=== PATIENT | female | born 1960 | race Caucasian/White ===

== ENCOUNTER 2021-09-13 13:51 | Outpatient (CLI) | payer BC, SELFPAY ==
--- NOTE | ~2021-09-13 | CT_ITS ---
EXAMINATION: CT lung screening DATE: 09/13/2021 14:21 INDICATION: 30+ pack year history of cigarette smoking TECHNIQUE: Computed tomography (CT) of the chest was performed without intravenous contrast. Addition al 3D reconstructions utilizing coronal maximum intensity projection (MIP) were performed. Automated exposure control and iterative reconstruction technique were employed. The dose-length product was 85 .96 mGy-cm. COMPARISON: None FINDINGS: Mild linear discoid atelectasis at the lingula and at the posterior sulci of the bilateral lower lobe s. No evident pulmonary nodules, pneumonia, pulmonary edema or pleural effusion. Heart size is normal . Small amount of atherosclerotic coronary artery calcific location. No pericardial effusion. Thoraci c aorta is normal in caliber. No pathologically enlarged thoracic lymphadenopathy. Visualized upper a bdomen is unremarkable. Mild thoracic spondylosis. Severe disc height loss with degenerative endplate changes at C6-C7. IMPRESSION: 1. Lung-RADS category 1: Negative. Continue annual screening with noncontrast low-dose chest CT in 12 months. Reviewed, dictated and finalized at location [facility]. [employer] IMPRESSION: 1. Lung-RADS category 1: Negative. Continue annual screening with noncontrast l ow-dose chest CT in 12 months.
== END 2021-09-13 13:52 | disposition home or self-care (01) ==
PROVIDERS: PCP Family Medicine; Visit Provider Nurse Practitioner Family
DX: Z87.891 Personal history of nicotine dependence (principal)
CPT/HCPCS: 71271

== ENCOUNTER 2022-05-18 00:18 | Day surgery (SDC) | payer OTHER, SELFPAY ==
--- NOTE | 2022-05-09 13:30 | PC.NURSE ---
Pt. phoned at [phone] in regards to upcoming colonoscopy. Message left on answering machine to return call at [phone].
[2022-05-10 14:29] VITALS: BMI 24.5
--- NOTE | 2022-05-17 10:53 | PM.HPGS ---
History of Present Illness History of Present Illness Consent: Risks, benefits, and alternatives have been discussed and questions answered. Patient agrees to proceed with procedure. Chief complaint: neoplasm screening Narrative: Trina Beltre is a 61 year old female was referred for colon cancer screening. Five years ago she had a colonoscopy in removal of a 2 cm polyp that was a tubular adenoma with high-grade dysplasia. Review of Systems Review of Systems: All systems reviewed & are unremarkable except as noted in HPI and below PMFSH Past Medical History Medical History Anxiety Depression Dyslipidemia Insomnia Mild episode of recurrent depressive disorder Neck pain, chronic OAB (overactive bladder) Spinal arthritis Vitamin D deficiency Surgical History Surgical History History of tonsillectomy and adenoidectomy Hx of appendectomy 09/2010 Hx of section 1991 - vaginal delivery in 1994 [place] teeth extracted Family History Family History Father Family history of throat cancer Mother Acute myocardial infarction Other Diabetes mellitus Hypertension Social History Social History Smoking packs per day: 1 Smoking cigarettes per day: 20.0 Years smoked: 20 Smoking pack-years: 20.00 Smoking status: Former smoker Tobacco type: cigarettes Second hand tobacco smoke exposure: Yes Additional smoking assessment comments: CURRENTLY ON NICOTINE PATCH Alcohol intake: current Alcohol use details: consumes 2 beers once a month, rarelt Substance use: never Substance use type: does not use Living arrangements: with family Additional occupation/education comments: From Home Gender identity (if verbalized by the patient): Female Spiritual care concerns: No Agree to blood products: Yes Meds Home Medications and Allergies Home Medications Medication Instructions Recorded Confirmed Type albuterol sulfate 90 mcg/actuation 2 inhalation inhalation Q4-6H PRN 10/30/19 05/10/22 Rx breath activated powder inhaler shortness of breath or wheezing #1 (ProAir RespiClick) ea hydrocodone 7.5 mg-acetaminophen 1 tablet PO TID PRN Pain 10/30/19 05/10/22 History 325 mg tablet cholecalciferol (vitamin D3) 50 50 mcg PO DAILY 07/30/21 05/10/22 History mcg (2,000 unit) capsule lisinopril 40 mg tablet 40 mg PO DAILY #30 tabs 11/02/21 05/10/22 Rx tolterodine 4 mg capsule,extended 4 mg PO DAILY #90 caps 02/17/22 05/10/22 Rx release 24 hr atorvastatin 20 mg tablet 20 mg PO DAILY #90 tabs 03/02/22 05/10/22 Rx citalopram 20 mg tablet 20 mg PO DAILY #90 tabs 04/04/22 05/10/22 Rx nicotine See Rx Instructions transdermal 04/04/22 05/10/22 Rx 21mg/24hr-14mg/24hr-7mg/24hr daily .COMPLEX #56 patches transderm patches,sequentl trazodone 50 mg tablet 50 mg PO HS 05/10/22 05/10/22 History Allergies Allergy/AdvReac Type Severity Reaction Status Date / Time No Known Allergies Allergy Verified 05/18/22 06:58 Exam Const: General: alert Orientation/consciousness: patient oriented x3 Resp: Auscultation: clear to auscultation bilaterally Cardio: Rhythm: regular rhythm GI: GI Palp: Yes Soft to palpation and No Tenderness to palpation present (GI) Neuro: General: patient oriented x3 Assessment and Plan Assessment and plan (1) Colon cancer screening: Code(s): Z12.11 - Encounter for screening for malignant neoplasm of colon Status: Acute Assessment and Plan: Colonoscopy with possible biopsy or polypectomy or cautery or injection of substances.
--- NOTE | 2022-05-17 13:36 | WPDANESEPPF ---
Anes - Initial Pre Proc Eval Procedure: Operation Date: 05/18/22 08:00 Proposed Procedures p Screening Colonoscopy - Micheal Markham MD Date/Time: 05/17/22 13:36 Surgeon: Micheal Markham MD Pre Op Diagnosis: neoplasm screening Patient Data Age: 61 Gender: F Height: 1.57 m Weight: 61 kg Allergies Allergy/AdvReac Type Severity Reaction Status Date / Time No Known Allergies Allergy Verified 05/18/22 06:58 Home Medications Medication Instructions Recorded Confirmed Type albuterol sulfate 90 mcg/actuation 2 inhalation inhalation Q4-6H PRN 10/30/19 05/10/22 Rx breath activated powder inhaler shortness of breath or wheezing #1 (ProAir RespiClick) ea hydrocodone 7.5 mg-acetaminophen 1 tablet PO TID PRN Pain 10/30/19 05/10/22 History 325 mg tablet cholecalciferol (vitamin D3) 50 50 mcg PO DAILY 07/30/21 05/10/22 History mcg (2,000 unit) capsule lisinopril 40 mg tablet 40 mg PO DAILY #30 tabs 11/02/21 05/10/22 Rx tolterodine 4 mg capsule,extended 4 mg PO DAILY #90 caps 02/17/22 05/10/22 Rx release 24 hr atorvastatin 20 mg tablet 20 mg PO DAILY #90 tabs 03/02/22 05/10/22 Rx citalopram 20 mg tablet 20 mg PO DAILY #90 tabs 04/04/22 05/10/22 Rx nicotine See Rx Instructions transdermal 04/04/22 05/10/22 Rx 21mg/24hr-14mg/24hr-7mg/24hr daily .COMPLEX #56 patches transderm patches,sequentl trazodone 50 mg tablet 50 mg PO HS 05/10/22 05/10/22 History Patient hx anesthesia problems: none Family hx anesthesia problems: none Results Review: All pre-operative results and documents have been reviewed as part of the pre-operative evaluation. [facility] Past Medical History Medical History Anxiety Depression Dyslipidemia Insomnia Mild episode of recurrent depressive disorder Neck pain, chronic OAB (overactive bladder) Spinal arthritis Vitamin D deficiency Surgical History Surgical History History of tonsillectomy and adenoidectomy Hx of appendectomy 09/2010 Hx of section 1991 - vaginal delivery in 1994 [place] teeth extracted Family History Family History Father Family history of throat cancer Mother Acute myocardial infarction Other Diabetes mellitus Hypertension Social History Social History Smoking packs per day: 1 Smoking cigarettes per day: 20.0 Years smoked: 20 Smoking pack-years: 20.00 Smoking status: Former smoker Tobacco type: cigarettes Second hand tobacco smoke exposure: Yes Additional smoking assessment comments: CURRENTLY ON NICOTINE PATCH Alcohol intake: current Alcohol use details: consumes 2 beers once a month, rarelt Substance use: never Substance use type: does not use Living arrangements: with family Additional occupation/education comments: From Home Gender identity (if verbalized by the patient): Female Spiritual care concerns: No Agree to blood products: Yes Anes - Eval Final PreProcedure Day of Procedure 05/17/22 13:36 Patient weight: normal Heart: regular rate and rhythm Lungs: clear to auscultation and normal air movement Airway: Mallampati scale class II Neurological: alert and oriented Last oral intake: >/= 8 hours ASA classification: II Emergent: no Anesthetic plan: proceed Anesthesia type and monitoring: general GIVS Results Review: All pre-operative results and documents have been reviewed as part of the pre-operative evaluation. Informed Consent: The patient's anesthetic plan and its attendant risks and benefits were discussed with the patient/family/POA. Questions were solicited and answers provided to the satisfaction of the patient/family/POA.
[2022-05-18 07:01] VITALS: BP 121/76; PULSE 98; RESP 18; TEMP 36.3; O2SAT 100
[2022-05-18] MEDS: LACTATED RINGERS 1,000 ML 150 ML IV CONT (07:15)
[2022-05-18 08:22] VITALS: BP 125/68; PULSE 83; RESP 17; O2SAT 100
[2022-05-18 08:32] VITALS: BP 128/82; PULSE 73; RESP 19; O2SAT 100
[2022-05-18 08:42] VITALS: BP 133/68; PULSE 74; RESP 23; O2SAT 100
== END 2022-05-18 08:50 | disposition home or self-care (01) ==
PROVIDERS: PCP Family Medicine; Visit Provider Internal Medicine Gastroenterology
PROC: 0DJD8ZZ Inspection of Lower Intestinal Tract, Via Natural or Artificial Opening Endoscopic (ICD-10-PCS; CPT 45378; principal; 2022-05-18 08:00)
DX: Z12.11 Encounter for screening for malignant neoplasm of colon (principal); K62.1 Rectal polyp; Z79.51 Long term (current) use of inhaled steroids; E55.9 Vitamin D deficiency, unspecified; F41.9 Anxiety disorder, unspecified; N32.81 Overactive bladder; F33.9 Major depressive disorder, recurrent, unspecified; G47.00 Insomnia, unspecified; Z87.891 Personal history of nicotine dependence
CPT/HCPCS: 45378; 88305; J2704; J7120

== ENCOUNTER 2023-05-12 08:55 | Outpatient (CLI) | payer OTHER, SELFPAY ==
[2023-05-12 17:09] LABS: Basophils Absolute Auto 0.1 K/mm3 (0.0-0.1); Basophils Percent Auto 0.7 % (0.2-1.2); Eosinophils Absolute Auto 0.2 K/mm3 (0-0.3); Eosinophils Percent Auto 2.1 % (0-4.4); Hemoglobin 13.1 g/dL (12.0-15.0); Immature Granulocyte Absolute 0.03 K/mm3 (0.00-0.031); Immature Granulocyte Percent A 0.4 % (0-0.5); Lymphocytes Absolute Auto 2.65 K/mm3 (0.9-3.2); Lymphocytes Percent Auto 32.7 % (18.3-44.2); Mean Corpuscular HGB Conc 32.8 g/dl (32-36); Mean Corpuscular Hemoglobin 29.4 pg (26-34); Mean Corpuscular Volume 89.9 fl (80-100); Mean Platelet Volume 10.1 fl (7.4-10.4); Monocytes Absolute Auto 0.6 K/mm3 (0.1-0.6); Monocytes Percent Auto 7.9 % (2.6-8.5); Neutrophils Absolute Auto 4.6 K/mm3 (1.3-6.7); Neutrophils Percent Auto 56.2 % (45.5-73.1); Platelet Count Result 342 k/mm3 (150-375); Red Blood Count 4.45 M/mm3 (4.2-5.4); Red Cell Distribution Width 12.3 % (11.5-14.5); White Blood Count 8.1 K/mm3 (4.5-10.0)
[2023-05-12 17:20] LABS: Hemoglobin A1C 5.5 % (<5.7)
[2023-05-12 17:27] LABS: Alanine Aminotransferase 18 U/L (6-35); Alkaline Phosphatase 80 U/L (38-126); Anion Gap 2 mmol/L (8-16); Aspartate Amino Transferase 22 U/L (14-36); Bilirubin,Total 0.4 mg/dL (0.2-1.3); Blood Urea Nitrogen 12 mg/dL (7-17); Calcium 8.6 mg/dL (8.4-10.2); Carbon Dioxide 28 mmol/L (22-30); Chloride 103 mmol/L (98-107); Cholesterol 168 mg/dL (0-200); Estimated Glomerular Filt Rate > 60; Glucose 94 mg/dL (65-110); HDL Direct 60 mg/dL; Sodium 133 mmol/L (137-145); Triglycerides 108 mg/dL (<150)
[2023-05-12 17:39] LABS: LDL Cholesterol Direct 81 mg/dL; Vitamin D 25 Hydroxy 45.5 ng/mL
[2023-05-12 17:54] LABS: Thyroid Stimulating Hormone 0.771 uIU/mL (0.465-4.680)
== END 2023-05-12 08:56 | disposition home or self-care (01) ==
LOC: ANHGOSHLAB 08:57
PROVIDERS: PCP Family Medicine; Visit Provider Nurse Practitioner Family
DX: Z00.00 Encounter for general adult medical examination without abnormal findings (principal); Z13.1 Encounter for screening for diabetes mellitus; I10 Essential (primary) hypertension; Z13.220 Encounter for screening for lipoid disorders; Z13.29 Encounter for screening for other suspected endocrine disorder; Z13.21 Encounter for screening for nutritional disorder
CPT/HCPCS: 36415; 80053; 80061; 82306; 83036; 84443; 85025

== ENCOUNTER 2024-02-29 09:59 | Outpatient (CLI) | payer OTHER, SELFPAY | END 2024-02-29 10:00 | disposition home or self-care (01) | PROVIDERS: PCP Family Medicine; Visit Provider Nurse Practitioner Family | DX: H91.90 Unspecified hearing loss, unspecified ear (principal) | CPT/HCPCS: 92557; 92567 ==